=== PATIENT | male | born 1960 | race African-American/Black ===

== ENCOUNTER 2017-10-23 07:48 | Emergency (ER) | payer SELFPAY ==
[~2017-10-23] VITALS: Ht 182.9 cm; Wt 135.0 kg
[2017-10-23] MEDS ORDERED: SODIUM CHLORIDE 0.9% 1,000 ML IV ONE (08:21)
[2017-10-23 09:01] LABS: BASOPHILS % 0.4 % (0.0-2.0); EOSINOPHILS % 0.4 % (0.0-5.0); HEMATOCRIT. 43.1 % (42.0-52.0); HEMOGLOBIN. 14.3 g/dL (14.0-18.0); LYMPHOCYTES % 16.4 % (20.0-50.0); MEAN CORPUSCULAR HEMOGLOBIN 31.5 pg (28.0-32.0); MEAN CORPUSCULAR VOLUME 94.8 fL (80.0-94.0); MEAN PLATELET VOLUME 8.7 fl (7.4-10.4); MONOCYTES % 6.2 % (2.0-8.0); NEUTROPHILS % 76.6 % (40.0-76.0); PLATELET 162 x1000/uL (130-400); RED BLOOD CELL COUNT 4.55 mill/uL (4.7-6.1); RED CELL DISTRIBUTION WIDTH 15.1 % (11.6-14.6)
[2017-10-23 09:04] LABS: CHLORIDE 107 mEq/L (98-107)
[2017-10-23 09:12] LABS: ETHANOL BLOOD < 10 mg/dL
[2017-10-23 09:14] LABS: AMMONIA 56 uMol/L (<32)
[2017-10-23 14:40] VITALS: BP 136/79
== END 2017-10-23 15:30 | disposition home or self-care (01) ==
LOC: ER 08:18
DX: R56.9 Unspecified convulsions (principal); R74.0 Nonspecific elevation of levels of transaminase and lactic acid dehydrogenase [LDH]; E72.20 Disorder of urea cycle metabolism, unspecified
CPT/HCPCS: 36415; 70450; 71045; 80053; 82140; 85025; 93005; 96360; 96361; 99285; G0482; J7030